=== PATIENT | male | born 1965 | race Caucasian/White ===

== ENCOUNTER 2017-10-04 17:39 | Emergency (ER) | payer OTHER ==
--- NOTE | 2017-10-04 17:51 | PDOC ---
History of Present Illness <Jacquelyn Santos - Last Filed: 10/04/17 21:13> - General History Source: Patient - History of Present Illness Initial Comments: 10/04/17 18:24 Patient is a 52 year old male with a PMH of pericarditis, NIDDM, Bipolar Disorder who presents with 3 month h/o chest pain. Pain is sharp, 10/10, constant, with radiation to his B/L UE and back. Patient denies any associated palpitations, lightheadedness, endorses dyspnea both @ rest and on exertion. Notes recent evaluation and treatment for percarditis @ [facility]. Has previously scheduled cardiology appointment for 10/06/17. Currently taking colchicine and ibuprofen for pericarditis. Notes h/o heroin abuse, but no IV use. Patient denies fevers/chills, abdominal pain, nausea/vomiting, dsyuria/hematuria , recent travel or sick contacts. As per EMR patient evaluated in [facility] for detox from Xanax in 2012. NKDA PMD: Cannot recall Cardiology: Dr. Diallo Peguero <Fabiola Fish - Last Filed: 10/05/17 07:20> - General Chief Complaint: Chest Pain Stated Complaint: CHEST PAIN Time Seen by Provider: 10/04/17 17:48 Past History <Jacquelyn Santos - Last Filed: 10/04/17 21:13> - Past Medical History Asthma: Yes Cardiac Disorders: No CVA: No COPD: No Diabetes: No GI Disorders: No Disorders: No HTN: Yes Hypercholesterolemia: Yes (FORGOT NAME OF MED) Kidney Stones: No Seizures: No - Surgical History Abdominal Surgery: No Appendectomy: No Cardiac Surgery: No Cholecystectomy: No Lung Surgery: No Neurologic Surgery: No Orthopedic Surgery: No - Reproductive History Testicular Surgery: No - Suicide/Smoking/Psychosocial Hx Smoking History: Current every day smoker Have you smoked in the past 12 months: Yes Number of Cigarettes Smoked Daily: 10 'Breaking Loose' booklet given: 01/04/13 Hx Alcohol Use: No Drug/Substance Use Hx: Yes Substance Use Type: Heroin, Tranquilizers Hx Substance Use Treatment: Yes (multiple times in detox and rehab) <Fabiola Fish - Last Filed: 10/05/17 07:20> - Past Medical History Allergies/Adverse Reactions: Allergies Allergy/AdvReac Type Severity Reaction Status Date / Time No Known Allergies Allergy Verified 01/09/13 14:55 Home Medications: Ambulatory Orders Aspirin [ASA -] 81 mg PO DAILY #30 tab.chew 01/28/13 Enalapril Maleate [Vasotec -] 5 mg PO DAILY #30 tablet 01/28/13 Hydrochlorothiazide [Hctz -] 12.5 mg PO DAILY #30 cap 01/28/13 Quetiapine Fumarate "Xr" [Seroquel XR] 300 mg PO HS@1999 #14 tablet 01/28/13 Salmeterol/Fluticasone [Advair 250Mcg/50Mcg -] 1 inh PO BID #1 inh 01/28/13 Sertraline HCl [Zoloft -] 50 mg PO DAILY #30 tablet 01/28/13 Ibuprofen [Motrin -] 800 mg PO BID #50 tablet 10/04/17 Review of Systems - Review of Systems Constitutional: No: Chills, Fever HEENTM: No: Recent change in vision Respiratory: Yes: Shortness of Breath. No: Cough Cardiac (ROS): Yes: Chest Pain. No: Lightheadedness, Palpitations, Syncope ABD/GI: No: Constipated, Diarrhea, Nausea, Vomiting : No: Burning, Dysuria <Fabiola Fish - Last Filed: 10/05/17 07:20> *Physical Exam - Vital Signs Last Vital Signs Temp Pulse Resp BP Pulse Ox 99 F 92 H 20 148/95 100 10/04/17 17:44 10/04/17 17:44 10/04/17 17:44 10/04/17 17:44 10/04/17 18:04 <Jacquelyn Santos - Last Filed: 10/04/17 21:13> - Physical Exam General Appearance: Yes: Nourished, Appropriately Dressed HEENT: positive: EOMI, PORFIRIO Neck: positive: Trachea midline, Supple Respiratory/Chest: positive: Lungs Clear Cardiovascular: positive: S1, S2. negative: Edema, JVD Vascular Pulses: Dorsalis-Pedis (R): 2+, Doralis-Pedis (L): 2+ Gastrointestinal/Abdominal: positive: Normal Bowel Sounds, Soft. 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 NML intact, Fully Oriented, Alert <Fabiola Fish - Last Filed: 10/05/17 07:20> ED Treatment Course - LABORATORY CBC & Chemistry Diagram: 10/04/17 18:04 10/04/17 18:04 - ADDITIONAL ORDERS Additional order review: Laboratory Results 10/04/17 10/04/17 18:04 18:04 PT with INR 15.60 H INR 1.38 H PTT (Actin FS) 29.8 Sodium 133 L Potassium 4.8 D Chloride 96 L Carbon Dioxide 34 H D Anion Gap 3 L BUN 8 Creatinine 0.5 L Creat Clearance w eGFR > 60 Random Glucose 299 H D Calcium 8.3 L Total Bilirubin 0.3 D AST 13 L D ALT 29 Alkaline Phosphatase 116 Creatine Kinase 39 Troponin I < 0.02 B-Natriuretic Peptide 693.76 H Total Protein 7.3 Albumin 2.9 L 10/04/17 18:04 RBC 4.18 MCV 82.6 MCHC 34.4 RDW 13.4 MPV 8.1 D Neutrophils % 81.1 Lymphocytes % 9.8 Monocytes % 7.3 Eosinophils % 1.1 Basophils % 0.7 - Medications Given in the ED: ED Medications Discontinued Medications Generic Name Dose Route Start Last Admin Trade Name Josey PRN Reason Stop Dose Admin Acetaminophen 1,000 mg 10/04/17 18:42 10/04/17 18:53 Ofirmev Injection - IVPB 10/04/17 18:43 1,000 mg ONCE ONE Administration Ketorolac Tromethamine 30 mg 10/04/17 19:33 10/04/17 20:00 Toradol Injection - IVPUSH 10/04/17 19:34 30 mg ONCE ONE Administration <SantosJacquelyn solis - Last Filed: 10/04/17 21:13> - LABORATORY CBC & Chemistry Diagram: 10/04/17 18:04 10/04/17 18:04 <Fabiola Fish - Last Filed: 10/05/17 07:20> Medical Decision Making - Medical Decision Making 10/04/17 18:31 52 year old male presents with chest pain that radiates to his back and B/L UE. Pain presents > 3 months. VS unremarkable. Low clinical suspicion for aortic dissection. Will obtain CBC, CMP, Troponin x1, CXR. Tylenol for pain. Reasess. 10/04/17 18:43 ECG shows NSR HR 96, no deviations, no diffuse DELISA elevations (no active pericarditis) no STD/TWI (non-acute ischemia). Patient to be signed out to Dr. Burns (Resident) and Dr. Blood (Attending ) - planned disposition home pending Troponin and CXR. <Fabiola Fish - Last Filed: 10/05/17 07:20> *DC/Admit/Observation/Transfer <Jacquelyn Santos - Last Filed: 10/04/17 21:13> <Fabiola Fish - Last Filed: 10/05/17 07:20> Diagnosis at time of Disposition: Pericarditis Qualifiers: Pericarditis type: unspecified type Chronicity: chronic Chronic pericarditis complication: unspecified complication status Qualified Code(s): I31.9 - Disease of pericardium, unspecified Chest pain Qualifiers: Chest pain type: unspecified Qualified Code(s): R07.9 - Chest pain, unspecified - Discharge Dispostion Disposition: HOME Condition at time of disposition: Good - Prescriptions Prescriptions: Ibuprofen [Motrin -] 800 mg PO BID #50 tablet - Referrals Referrals: ON STAFF,NOT [Primary Care Provider] - - Patient Instructions Printed Discharge Instructions: DI for Chest Pain Additional Instructions: You were seen in the ER for chest pain. We did lab work on your blood and urine , an electrocardiogram, and a chest x-ray, and we did not find any concerning abnormalities. Your symptoms improved with the medications we gave you in the ER. After our assessment, we do not believe you are having a medical emergency at this time, and we believe you are safe to go home. Take over the counter pain medications for your pain, as instructed on the medication label. Please follow up with your home care specialist on 10/06/17 (in two days; Monday), and your regular PCP doctor in 1-3 days. Call their clinic as soon as possible, tell them you were seen in the ER, and tell them you need an appointment. Take your prescribed Motrin for pain. If you have any new or worsening symptoms, especially worsening chest pain, jaw pain, shoulder/arm pain, shortness of breath, sweats, nausea, loss of consciousness, palpitations, or other symptoms, please come back to the ER at any time (24 hours a day). If you are having severe or life threatening symptoms, or symptoms that make it unsafe to drive or have someone drive you, please call 911.
[2017-10-04 18:17] LABS: BASO % 0.7 % (0-2.0); EOS % 1.1 % (0-4.5); HEMATOCRIT 34.5 % (35.4-49); HEMOGLOBIN 11.9 GM/dL (11.7-16.9); LYMPH % 9.8 % (8-40); MCH 28.4 pg (25.7-33.7); MCHC 34.4 g/dl (32.0-35.9); MEAN CELL VOLUME 82.6 fl (80-96); MEAN PLT VOLUME 8.1 fl (7.5-11.1); MONO % 7.3 % (3.8-10.2); NEUT % 81.1 % (42.8-82.8); PLATELET COUNT 399 K/MM3 (134-434); RBC 4.18 M/mm3 (4.00-5.60); RDW 13.4 % (11.9-15.9); WHITE BLOOD COUNT 10.7 K/mm3 (4.0-10.0)
[2017-10-04 18:22] VITALS: BP 148/95; PULSE 92; TEMP 99; BMI 34.0
[2017-10-04 18:38] LABS: INR 1.38 (0.82-1.09); PROTHROMBIN TIME (PATIENT) 15.6 SEC (9.7-13.0)
[2017-10-04 18:40] LABS: ACTIVATED PTT 29.8 SECONDS (26.9-34.4)
[2017-10-04] MEDS ORDERED: ACETAMINOPHEN 1000 MG/100 ML VIAL (NON FORMULARY) IVPB ONE (18:42)
[2017-10-04] MEDS ORDERED: ACETAMINOPHEN INJECTION 100 ML IVPB ONE (18:42)
--- NOTE | 2017-10-04 18:45 | PDOC ---
Attending Attestation - Resident Resident Name: Fabiola Fish - ED Attending Attestation I have performed the following: I have examined & evaluated the patient, The case was reviewed & discussed with the resident, I agree w/resident's findings & plan, Exceptions are as noted - HPI HPI: 10/06/17 10:35 Mr Castillo is a 52 year old male with a PMH of pericarditis, NIDDM, Bipolar Disorder who presents with 3 month h/o chest pain. Pain is sharp, 10/10, constant, with radiation to his B/L UE and back. S/p recent evaluation and treatment for percarditis @ [facility] (has follow up on 10/06) No fevers/chills, abdominal pain, nausea/vomiting, dsyuria/hematuria, recent travel or sick contacts. - Physicial Exam PE: 10/06/17 10:39 General Appearance: Yes: Nourished, Appropriately Dressed HEENT: positive: EOMI, PORFIRIO Respiratory/Chest: Lungs Clear, no wheezing Cardiovascular: positive: S1, S2. negative: Edema, JVD Vascular Pulses: Dorsalis-Pedis (R): 2+, Doralis-Pedis (L): 2+ Gastrointestinal/Abdominal: positive: Normal Bowel Sounds, Soft. 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
[2017-10-04 18:50] LABS: ALBUMIN 2.9 g/dl (3.4-5.0); ANION GAP 3 (8-16); BILIRUBIN,TOTAL 0.3 mg/dL (0.2-1.0); BLOOD UREA NITROGEN 8 mg/dL (7-18); CALCIUM 8.3 mg/dL (8.5-10.1); CHLORIDE 96 mmol/L (98-107); CO2 34 mmol/L (21-32); CREATININE 0.5 mg/dL (0.7-1.3); GLUCOSE,RANDOM 299 mg/dL (74-106); POTASSIUM 4.8 mmol/L (3.5-5.1); SGOT/AST 13 U/L (15-37); SGPT/ALT 29 U/L (12-78); SODIUM 133 mmol/L (136-145)
[2017-10-04 18:54] LABS: ALK PHOS 116 U/L (45-117); N-TERMINAL BNP 693.76 pg/ml (5-125); TOT PROT 7.3 g/dl (6.4-8.2)
--- NOTE | 2017-10-04 19:09 | PDOC ---
*Physical Exam - Vital Signs Last Vital Signs Temp Pulse Resp BP Pulse Ox 99 F 92 H 20 148/95 100 10/04/17 17:44 10/04/17 17:44 10/04/17 17:44 10/04/17 17:44 10/04/17 18:04 10/04/17 19:07 Care endorsed to me by Dr. Fish. 52 YOM Recently dx and tx pericarditis, h/o IVDA on methadone, comes in with 3 month of chest pain, nothing different today , bilateral BP roughtly equal, EKG without ischemic changes, has appointment with cards on 10/06/17, awaiting results of troponin then can likely dispo home with close f/u. Heart Score/ECG Review - History History: Slightly suspicious - Electrocardiogram EKG: Normal - Age Age: 45-65 - Risk Factors Risk Factors Heart Score: Yes Hx Hypertension Based on the list above the patient has:: 1-2 risk factors - Troponin Troponin: </= normal limit - Score Heart Score - Total: 2 ED Treatment Course - LABORATORY CBC & Chemistry Diagram: 10/04/17 18:04 10/04/17 18:04 - ADDITIONAL ORDERS Additional order review: Laboratory Results 10/04/17 18:04 PT with INR 15.60 H INR 1.38 H PTT (Actin FS) 29.8 10/04/17 18:04 RBC 4.18 MCV 82.6 MCHC 34.4 RDW 13.4 MPV 8.1 D Neutrophils % 81.1 Lymphocytes % 9.8 Monocytes % 7.3 Eosinophils % 1.1 Basophils % 0.7 - Medications Given in the ED: ED Medications Discontinued Medications Generic Name Dose Route Start Last Admin Trade Name Freq PRN Reason Stop Dose Admin Acetaminophen 1,000 mg 10/04/17 18:42 10/04/17 18:53 Ofirmev Injection - IVPB 10/04/17 18:43 1,000 mg ONCE ONE Administration Medical Decision Making - Medical Decision Making 10/04/17 19:58 Patient with residual pain now; toradol ordered. Laboratory Tests 10/04/17 10/04/17 10/04/17 18:04 18:04 18:04 WBC 10.7 H RBC 4.18 Hgb 11.9 D Hct 34.5 L D MCV 82.6 MCH 28.4 MCHC 34.4 RDW 13.4 Plt Count 399 D MPV 8.1 D Neutrophils % 81.1 Lymphocytes % 9.8 Monocytes % 7.3 Eosinophils % 1.1 Basophils % 0.7 PT with INR 15.60 H INR 1.38 H PTT (Actin FS) 29.8 Sodium 133 L Potassium 4.8 D Chloride 96 L Carbon Dioxide 34 H D Anion Gap 3 L BUN 8 Creatinine 0.5 L Creat Clearance w eGFR > 60 Random Glucose 299 H D Calcium 8.3 L Total Bilirubin 0.3 D AST 13 L D ALT 29 Alkaline Phosphatase 116 Creatine Kinase 39 Troponin I < 0.02 B-Natriuretic Peptide 693.76 H Total Protein 7.3 Albumin 2.9 L 10/04/17 20:02 Cardiac enzymes are negative. 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 EKG is without ischemic changes. On last reassessment VS are stable, patients pain is much improved, and exam is benign. The patients HEART score indicates they are low risk and do not require admission currently. The patient is appropriate for discharge with close outpatient follow up. They are comfortable with this plan and will follow up with their commercial artist as scheduled 10/06/17. They will follow up with their regular doctor in the next 1-3 days. Return precautions are discussed and they will come back to the ER if necessary. *DC/Admit/Observation/Transfer Diagnosis at time of Disposition: Pericarditis Qualifiers: Pericarditis type: unspecified type Chronicity: chronic Chronic pericarditis complication: unspecified complication status Qualified Code(s): I31.9 - Disease of pericardium, unspecified Chest pain Qualifiers: Chest pain type: unspecified Qualified Code(s): R07.9 - Chest pain, unspecified - Discharge Dispostion Disposition: HOME Condition at time of disposition: Good Admit: No - Prescriptions Prescriptions: Ibuprofen [Motrin -] 800 mg PO BID #50 tablet - Referrals Referrals: ON STAFF,NOT [Primary Care Provider] - - Patient Instructions Printed Discharge Instructions: DI for Chest Pain Additional Instructions: You were seen in the ER for chest pain. We did lab work on your blood and urine , an electrocardiogram, and a chest x-ray, and we did not find any concerning abnormalities. Your symptoms improved with the medications we gave you in the ER. After our assessment, we do not believe you are having a medical emergency at this time, and we believe you are safe to go home. Take over the counter pain medications for your pain, as instructed on the medication label. Please follow up with your commercial artist on 10/06/17 (in two days; Monday), and your regular PCP doctor in 1-3 days. Call their clinic as soon as possible, tell them you were seen in the ER, and tell them you need an appointment. Take your prescribed Motrin for pain. If you have any new or worsening symptoms, especially worsening chest pain, jaw pain, shoulder/arm pain, shortness of breath, sweats, nausea, loss of consciousness, palpitations, or other symptoms, please come back to the ER at any time (24 hours a day). If you are having severe or life threatening symptoms, or symptoms that make it unsafe to drive or have someone drive you, please call 911. - Post Discharge Activity
[2017-10-04] MEDS ORDERED: KETOROLAC TROMETHAMINE 30 MG/1 ML VIAL IVPUSH ONE (19:33)
[2017-10-04] MEDS ORDERED: KETOROLAC TROMETHAMINE 30 MG/1 ML VIAL ONE (19:48)
--- NOTE | 2017-10-05 11:28 | EKG ---
Test Reason : Blood Pressure : / mmHG Vent. Rate : 096 BPM Atrial Rate : 096 BPM P-R Int : 148 ms QRS Dur : 100 ms QT Int : 356 ms P-R-T Axes : 053 034 070 degrees QTc Int : 449 ms NORMAL SINUS RHYTHM NONSPECIFIC T WAVE ABNORMALITY ABNORMAL ECG NO PREVIOUS ECGS AVAILABLE Confirmed by FRANKLIN EASON, KHRIS ([id number]) on 10/05/2017 11:28:30 AM Referred By: Confirmed By:KHRIS REID MD
== END 2017-10-04 18:55 | disposition home or self-care (01) ==
LOC: JER 17:39
PROC: 3E033NZ Introduction of Analgesics, Hypnotics, Sedatives into Peripheral Vein, Percutaneous Approach (ICD-10-PCS; principal; 2017-10-04)
PROC: 3E0333Z Introduction of Anti-inflammatory into Peripheral Vein, Percutaneous Approach (ICD-10-PCS; 2017-10-04)
DX: I31.9 Disease of pericardium, unspecified (principal); R07.9 Chest pain, unspecified; I10 Essential (primary) hypertension; E78.00 Pure hypercholesterolemia, unspecified; J45.909 Unspecified asthma, uncomplicated; F17.210 Nicotine dependence, cigarettes, uncomplicated
CPT/HCPCS: 36415; 80053; 82550; 83880; 84484; 85025; 85610; 85730; 93005; 93010; 96374; 96375; 99285-25; J0131

== ENCOUNTER 2021-03-08 14:25 | Emergency (ER) | payer OTHER ==
[2021-03-08 14:52] VITALS: BP 108/68; PULSE 64; TEMP 98; BMI 32.5
[2021-03-08] MEDS ORDERED: PIPERACILLIN/TAZOB 4.5 GM 4.5 GM in DEXTROSE 5%-WATER 100 ML IVPB ONE (15:47)
[2021-03-08] MEDS ORDERED: VANCOMYCIN 2,000 MG in DEXTROSE 5%-WATER - 500 ML IVPB ONE (15:48)
[2021-03-08] MEDS ORDERED: ACETAMINOPHEN 1000 MG/100 ML VIAL (NON FORMULARY) IVPB ONE (16:23)
[2021-03-08] MEDS ORDERED: PIPERACILLIN/TAZOB 4.5 GM 4.5 GM/100 ML BAG IVPB ONE (16:34)
[2021-03-08] MEDS ORDERED: ACETAMINOPHEN INJECTION 100 ML IVPB ONE (16:34)
[2021-03-08 16:47] LABS: BASO % 0.3 % (0-2.0); EOS % 3.8 % (0-4.5); HEMATOCRIT 40.2 % (35.4-49); HEMOGLOBIN 13.8 GM/dL (11.7-16.9); LYMPH % 21.8 % (8-40); MCH 29.1 pg (25.7-33.7); MCHC 34.4 g/dl (32.0-35.9); MEAN CELL VOLUME 84.5 fl (80-96); MEAN PLT VOLUME 7.7 fl (7.5-11.1); MONO % 6.3 % (3.8-10.2); NEUT % 67.8 % (42.8-82.8); PLATELET COUNT 267 10^3/uL (134-434); RBC 4.76 M/mm3 (4.00-5.60); RDW 13.4 % (11.9-15.9); WHITE BLOOD COUNT 8.6 K/mm3 (4.0-10.0)
[2021-03-08] MEDS ORDERED: VANCOMYCIN 1 GRAM (PRE-DOCKED) 1,000 MG/250 ML BAG IVPB ONE (17:01)
[2021-03-08 17:09] LABS: CALCIUM 9.2 mg/dL (8.5-10.1)
[2021-03-08 17:10] LABS: ALBUMIN 3.6 g/dl (3.4-5.0); BLOOD UREA NITROGEN 14.4 mg/dL (7-18)
[2021-03-08 17:13] LABS: CREATININE 0.6 mg/dL (0.55-1.3)
[2021-03-08 17:14] LABS: BILIRUBIN,TOTAL 0.4 mg/dL (0.2-1)
[2021-03-08 17:15] LABS: TOT PROT 7.4 g/dl (6.4-8.2)
== END 2021-03-08 18:42 | disposition left against medical advice (07) ==
LOC: JER 14:25 → UNDOADMIN 16:59 → JERBED 16:59 → UNDODISIN 18:42
PROC: 3E0333Z Introduction of Anti-inflammatory into Peripheral Vein, Percutaneous Approach (ICD-10-PCS; principal; 2021-03-08)
PROC: 3E03329 Introduction of Other Anti-infective into Peripheral Vein, Percutaneous Approach (ICD-10-PCS; 2021-03-08)
PROC: 3E03329 Introduction of Other Anti-infective into Peripheral Vein, Percutaneous Approach (ICD-10-PCS; 2021-03-08)
DX: L97.529 Non-pressure chronic ulcer of other part of left foot with unspecified severity (principal)
CPT/HCPCS: 36415; 73630-TC-LT; 80053; 85025; 87040; 99284-25; J0131

== ENCOUNTER 2023-10-17 05:59 | Emergency (ER) | payer OTHER ==
[2023-10-17 06:06] VITALS: BP 135/82; PULSE 91; RESP 20; TEMP 98.6; BMI 19.2
== END 2023-10-17 07:47 | disposition left against medical advice (07) ==
LOC: JER 05:59
DX: Z53.21 Procedure and treatment not carried out due to patient leaving prior to being seen by health care provider (principal)
CPT/HCPCS: 99281-25

== ENCOUNTER 2023-10-17 17:56 | Inpatient (IN) | payer OTHER ==
[2023-10-17] MEDS ORDERED: PIPERACILLIN/TAZOB 3.375 GM 3.375 GM/50 ML BAG IVPB ONE (19:26)
[2023-10-17] MEDS ORDERED: ACETAMINOPHEN INJECTION 100 ML IVPB ONE (19:26)
[2023-10-17 20:07] LABS: BASO % 0.4 % (0-2.0); EOS % 1.9 % (0-4.5); HEMATOCRIT 40.1 % (35.4-49); HEMOGLOBIN 14.2 GM/dL (11.7-16.9); LYMPH % 18.8 % (8-40); MCHC 35.4 g/dl (32.0-35.9); MEAN CELL VOLUME 84.7 fl (80-96); MEAN PLT VOLUME 8.7 fl (7.5-11.1); MONO % 6.5 % (3.8-10.2); NEUT % 72.4 % (42.8-82.8); PLATELET COUNT 267 10^3/uL (134-434); RBC 4.74 M/mm3 (4.00-5.60); RDW 12.9 % (11.9-15.9); WHITE BLOOD COUNT 8.8 K/mm3 (4.0-10.0)
[2023-10-17 20:13] LABS: INR 1.02 (0.83-1.09); PROTHROMBIN TIME (PATIENT) 11.5 SEC (9.7-13.0)
[2023-10-17 20:16] LABS: ACTIVATED PTT 30.9 SECONDS (25.2-36.5)
[2023-10-17 20:24] LABS: CHLORIDE 97 mmol/L (98-107); SODIUM 130 mmol/L (136-145)
[2023-10-17 20:26] LABS: CALCIUM 9.1 mg/dL (8.5-10.1)
[2023-10-17 20:27] LABS: ALBUMIN 3.4 g/dl (3.4-5.0); ANION GAP 6 mmol/L (4-13); BLOOD UREA NITROGEN 10.9 mg/dL (7-18); CO2 28 mmol/L (21-32); MAGNESIUM 1.8 mg/dL (1.8-2.4)
[2023-10-17 20:30] LABS: CREATININE 0.7 mg/dL (0.55-1.3); SGOT/AST 14 U/L (15-37); SGPT/ALT 18 U/L (13-61)
[2023-10-17 20:31] LABS: TOT PROT 6.8 g/dl (6.4-8.2)
[2023-10-17 20:33] LABS: ALK PHOS 110 U/L (45-117)
[2023-10-17 20:40] LABS: BILIRUBIN,TOTAL 0.5 mg/dL (0.2-1)
[2023-10-17] MEDS ORDERED: ACETAMINOPHEN 500 MG TABLET (FP) ONE (20:54)
[2023-10-17] MEDS: ACETAMINOPHEN 500 MG TABLET (FP) PO ONE (20:58)
[2023-10-17 21:04] LABS: ERYTHROCYTE SEDIMENTATION RATE 13 mm/hr (0-20)
[2023-10-17 21:09] LABS: GLUCOSE,RANDOM 511 mg/dL (74-106)
[2023-10-17] MEDS: PIPERACILLIN/TAZOB 3.375 GM 3.375 GM in DEXTROSE 5%-WATER - 50 ML IVPB ONE (22:00)
[2023-10-17] MEDS: INSULIN (NOVOLOG) ASPART 100 UNITS/ML 10ML VIAL SQ ONE (22:08)
[2023-10-17] MEDS ORDERED: VANCOMYCIN 1 GRAM (PRE-DOCKED) 1,000 MG/250 ML BAG IVPB ONE (22:20)
[2023-10-17] MEDS: ACETAMINOPHEN 1000 MG/100 ML BAG IVPB ONE (22:30)
[2023-10-17] MEDS: SODIUM CHLORIDE 0.9% 500 ML INFUS.BAG IV ONE (23:23)
[2023-10-17] MEDS: VANCOMYCIN 1,000 MG in DEXTROSE 5%-WATER - 250 ML IVPB ONE (23:23)
[2023-10-18 02:25] VITALS: BMI 24.8
[2023-10-18] MEDS: PIPERACILLIN/TAZOB 3.375 GM 3.375 GM in DEXTROSE 5%-WATER - 50 ML IVPB SCH ×2 (02:50→18:05)
[2023-10-18] MEDS: ACETAMINOPHEN 500 MG TABLET (FP) PO ONE (02:58)
[2023-10-18] MEDS ORDERED: PIPERACILLIN/TAZOB 3.375 GM 3.375 GM in DEXTROSE 5%-WATER - 50 ML IVPB SCH (03:00)
[2023-10-18] MEDS: INSULIN ASPART SLIDING SCALE (NOVOLOG) 1 VIAL SQ SCH (06:19)
[2023-10-18 08:06] LABS: BASO % 0.3 % (0-2.0); EOS % 2.3 % (0-4.5); HEMATOCRIT 41.7 % (35.4-49); HEMOGLOBIN 14.6 GM/dL (11.7-16.9); LYMPH % 17.4 % (8-40); MCH 29.6 pg (25.7-33.7); MEAN CELL VOLUME 84.5 fl (80-96); MEAN PLT VOLUME 8.4 fl (7.5-11.1); MONO % 6.1 % (3.8-10.2); NEUT % 73.9 % (42.8-82.8); PLATELET COUNT 286 10^3/uL (134-434); RBC 4.94 M/mm3 (4.00-5.60); WHITE BLOOD COUNT 7.8 K/mm3 (4.0-10.0)
[2023-10-18 08:22] LABS: POTASSIUM 4.1 mmol/L (3.5-5.1)
[2023-10-18 08:35] LABS: CALCIUM 8.7 mg/dL (8.5-10.1)
[2023-10-18 08:36] LABS: ALBUMIN 3.4 g/dl (3.4-5.0); BLOOD UREA NITROGEN 11.9 mg/dL (7-18)
[2023-10-18 08:37] LABS: CREATININE 0.6 mg/dL (0.55-1.3); PHOSPHOROUS 2.6 mg/dL (2.5-4.9)
[2023-10-18 08:39] LABS: BILIRUBIN,TOTAL 0.6 mg/dL (0.2-1)
[2023-10-18] MEDS ORDERED: VANCOMYCIN 1,000 MG in DEXTROSE 5%-WATER - 250 ML IVPB SCH (10:00)
[2023-10-18] MEDS: ENOXAPARIN NA (PORCINE) 40 MG/0.4 ML DISP.SYRIN SQ SCH (11:08)
[2023-10-18] MEDS: COLLAGENASE CLOSTRIDIUM HIST. 30 GRAMS TUBE TP SCH (11:08)
[2023-10-18] MEDS: VANCOMYCIN/WATER FOR INJ (PEG) 1,000 MG/200 ML BAG IVPB SCH (11:34)
[2023-10-18] MEDS: NICOTINE 21 MG/24 HOURS TOPICAL PATCH TD SCH (12:18)
[2023-10-18] MEDS: ALPRAZolam 1 MG TABLET PO ONE (12:18)
[2023-10-18] MEDS: INSULIN (NOVOLOG) ASPART 100 UNITS/ML 10ML VIAL SQ ONE (14:47)
[2023-10-18] MEDS: SODIUM CHLORIDE 1,000 ML IV SCH (18:05)
[2023-10-18] MEDS ORDERED: INSULIN (LEVEMIR) 100 UNITS/ML UNITS SQ SCH (22:00)
[2023-10-18] MEDS: ALPRAZolam 1 MG TABLET PO PRN (22:39)
[2023-10-18] MEDS: INSULIN (LEVEMIR) 100 UNITS/ML UNITS SQ SCH (22:52)
[2023-10-19] MEDS: INSULIN ASPART SLIDING SCALE (NOVOLOG) 1 VIAL SQ SCH (07:00)
[2023-10-19] MEDS: INSULIN (LEVEMIR) 100 UNITS/ML UNITS SQ SCH (07:00)
[2023-10-19] MEDS: DULoxetine HCL 20 MG CAPSULE.DR PO SCH (09:18)
[2023-10-19] MEDS: VANCOMYCIN PREMIX 1.5 GM 1,500 MG/300 ML BAG IVPB SCH (13:23)
[2023-10-19] MEDS: ACETAMINOPHEN 500 MG TABLET (FP) PO ONE (21:40)
[2023-10-19] MEDS: MELATONIN 5 MG TABLETS PO ONE (21:40)
[2023-10-20] MEDS: INSULIN (LEVEMIR) 100 UNITS/ML UNITS SQ SCH (06:14)
[2023-10-20] MEDS: RAMIPRIL 2.5 MG CAPSULE PO SCH (10:07)
[2023-10-20 11:14] VITALS: RESP 18
[2023-10-20] MEDS: INSULIN (NOVOLOG) ASPART 100 UNITS/ML 10ML VIAL SQ ONE (22:03)
[2023-10-21 10:18] LABS: CHOLESTEROL 177 mg/dL (50-200)
[2023-10-21 10:19] LABS: LDL CHOLESTEROL (ONLY SJRH) 80 mg/dL (5-100)
[2023-10-21 10:21] LABS: HDL CHOLESTEROL 78 mg/dL (40-60)
[2023-10-21] MEDS: VANCOMYCIN PREMIX 1.5 GM 1,500 MG/300 ML BAG IVPB SCH (15:54)
[2023-10-21] MEDS: ACETAMINOPHEN 325 MG TABLET (FP) PO ONE (23:19)
[2023-10-22 09:01] LABS: BASO % 0.5 % (0-2.0); EOS % 2.6 % (0-4.5); HEMATOCRIT 41.3 % (35.4-49); HEMOGLOBIN 14.6 GM/dL (11.7-16.9); LYMPH % 17.8 % (8-40); MCH 30.1 pg (25.7-33.7); MCHC 35.3 g/dl (32.0-35.9); MEAN CELL VOLUME 85.4 fl (80-96); MEAN PLT VOLUME 8.7 fl (7.5-11.1); MONO % 7.9 % (3.8-10.2); NEUT % 71.2 % (42.8-82.8); PLATELET COUNT 246 10^3/uL (134-434); RBC 4.83 M/mm3 (4.00-5.60); RDW 12.8 % (11.9-15.9)
[2023-10-22 09:27] LABS: POTASSIUM 4.6 mmol/L (3.5-5.1)
[2023-10-22 09:32] LABS: CALCIUM 9.1 mg/dL (8.5-10.1)
[2023-10-22 09:33] LABS: BLOOD UREA NITROGEN 15.1 mg/dL (7-18)
[2023-10-22 09:36] LABS: CREATININE 0.7 mg/dL (0.55-1.3)
[2023-10-22] MEDS: ACETAMINOPHEN 325 MG TABLET (FP) PO PRN (14:54)
[2023-10-23 08:26] LABS: HEMATOCRIT 40.2 % (35.4-49); MCH 29.5 pg (25.7-33.7); MCHC 34.9 g/dl (32.0-35.9); MEAN CELL VOLUME 84.4 fl (80-96); MEAN PLT VOLUME 8.6 fl (7.5-11.1); PLATELET COUNT 267 10^3/uL (134-434); RBC 4.76 M/mm3 (4.00-5.60); WHITE BLOOD COUNT 7.3 K/mm3 (4.0-10.0)
[2023-10-23 08:51] LABS: POTASSIUM 4.4 mmol/L (3.5-5.1)
[2023-10-23 08:53] LABS: CALCIUM 9.4 mg/dL (8.5-10.1)
[2023-10-23 08:54] LABS: BLOOD UREA NITROGEN 12.2 mg/dL (7-18)
[2023-10-23 08:57] LABS: CREATININE 0.6 mg/dL (0.55-1.3)
[2023-10-23 09:41] LABS: ANISOCYTOSIS 0; MACROCYTOSIS 0
[2023-10-23 09:56] VITALS: BP 148/77; PULSE 67; TEMP 98.4
== END 2023-10-23 13:45 | disposition home or self-care (01) | DRG 344 ==
LOC: JER 17:56 → JERBED 21:37 → J6S 10-18 01:28
PROVIDERS: ADMIT Student in an Organized Health Care Education/Training Program; ATTEND Family Medicine
DX: E11.69 Type 2 diabetes mellitus with other specified complication (principal); M86.9 Osteomyelitis, unspecified; M86.8X7 Other osteomyelitis, ankle and foot; E11.40 Type 2 diabetes mellitus with diabetic neuropathy, unspecified; F11.20 Opioid dependence, uncomplicated; E11.65 Type 2 diabetes mellitus with hyperglycemia; E11.621 Type 2 diabetes mellitus with foot ulcer; F17.210 Nicotine dependence, cigarettes, uncomplicated; I10 Essential (primary) hypertension; L97.509 Non-pressure chronic ulcer of other part of unspecified foot with unspecified severity
CPT/HCPCS: 36415; 73590-TC-RT-FY; 73630-TC-RT-FY; 73718-TC-RT; 80048; 80053; 80061; 82962; 83036; 83735; 84100; 85025; 85610; 85651; 85730; 86140; 87040; 87070; 87077; 87186; 87205; 93005; 93010; 93926-TC; 99285-25; G0480

== ENCOUNTER 2024-03-23 22:03 | Inpatient (IN) | payer OTHER ==
[2024-03-23 22:30] VITALS: BMI 19.2
[2024-03-23] MEDS ORDERED: ACETAMINOPHEN INJECTION 100 ML ONE (23:00)
[2024-03-23] MEDS: ACETAMINOPHEN 1000 MG/100 ML BAG IVPB ONE (23:11)
[2024-03-23 23:18] LABS: BASO % 0.4 % (0-2.0); HEMATOCRIT 38.3 % (35.4-49); HEMOGLOBIN 13.1 GM/dL (11.7-16.9); MCH 29.5 pg (25.7-33.7); MCHC 34.2 g/dl (32.0-35.9); MEAN CELL VOLUME 86.4 fl (80-96); MEAN PLT VOLUME 7.7 fl (7.5-11.1); MONO % 6.4 % (3.8-10.2); NEUT % 72.2 % (42.8-82.8); PLATELET COUNT 292 10^3/uL (134-434); RBC 4.44 M/mm3 (4.00-5.60); RDW 12.9 % (11.9-15.9); WHITE BLOOD COUNT 8.3 K/mm3 (4.0-10.0)
[2024-03-23] MEDS ORDERED: VANCOMYCIN 1 GRAM (PRE-DOCKED) 1,000 MG/250 ML BAG IVPB ONE (23:21)
[2024-03-23] MEDS ORDERED: PIPERACILLIN/TAZOB 4.5 GM 4.5 GM/100 ML BAG IVPB ONE (23:21)
[2024-03-23 23:42] LABS: POTASSIUM 3.8 mmol/L (3.5-5.1)
[2024-03-23 23:44] LABS: ALBUMIN 3.5 g/dl (3.4-5.0); CALCIUM 9.6 mg/dL (8.5-10.1)
[2024-03-23 23:45] LABS: BLOOD UREA NITROGEN 14.6 mg/dL (7-18)
[2024-03-23 23:49] LABS: TOT PROT 7.1 g/dl (6.4-8.2)
[2024-03-23] MEDS: PIPERACILLIN/TAZOB 4.5 GM 4.5 GM in DEXTROSE 5%-WATER 100 ML IVPB ONE (23:49)
[2024-03-24] MEDS: VANCOMYCIN 1,000 MG in DEXTROSE 5%-WATER - 250 ML IVPB ONE (00:28)
[2024-03-24 01:26] LABS: BILIRUBIN,TOTAL 0.3 mg/dL (0.2-1)
[2024-03-24] MEDS ORDERED: ACETAMINOPHEN INJECTION 100 ML ONE (05:04)
[2024-03-24] MEDS: ACETAMINOPHEN 1000 MG/100 ML BAG IVPB ONE (05:16)
[2024-03-24 07:49] LABS: BASO % 0.3 % (0-2.0); EOS % 4.2 % (0-4.5); HEMATOCRIT 36.9 % (35.4-49); LYMPH % 28.8 % (8-40); MCH 30.1 pg (25.7-33.7); MCHC 35.1 g/dl (32.0-35.9); MEAN CELL VOLUME 85.6 fl (80-96); MEAN PLT VOLUME 8.2 fl (7.5-11.1); MONO % 8.4 % (3.8-10.2); NEUT % 58.3 % (42.8-82.8); PLATELET COUNT 287 10^3/uL (134-434); RBC 4.31 M/mm3 (4.00-5.60); RDW 12.4 % (11.9-15.9); WHITE BLOOD COUNT 6.3 K/mm3 (4.0-10.0)
[2024-03-24 08:06] LABS: POTASSIUM 3.7 mmol/L (3.5-5.1)
[2024-03-24 08:11] LABS: CALCIUM 8.9 mg/dL (8.5-10.1)
[2024-03-24 08:12] LABS: BLOOD UREA NITROGEN 15.5 mg/dL (7-18); MAGNESIUM 1.6 mg/dL (1.8-2.4)
[2024-03-24 08:15] LABS: CREATININE 0.7 mg/dL (0.55-1.3)
[2024-03-24] MEDS ORDERED: PATIENT'S OWN MEDICATION (NON-FORMULARY) (Methadone 140 MG) PO SCH (10:00)
[2024-03-24] MEDS ORDERED: methaDONE HCL 10 MG TABLET PO SCH (10:00)
[2024-03-24] MEDS: DULoxetine HCL 20 MG CAPSULE.DR PO SCH (10:30)
[2024-03-24] MEDS ORDERED: methaDONE HCL 40 MG DISPERSABLE TABLET ONE (10:43)
[2024-03-24] MEDS ORDERED: RAMIPRIL 5 MG CAPSULE ONE (10:43)
[2024-03-24] MEDS: methaDONE HCL 40 MG DISPERSABLE TABLET PO ONE (10:50)
[2024-03-24] MEDS ORDERED: GABAPENTIN 100 MG CAPSULE ONE (10:51)
[2024-03-24] MEDS ORDERED: ASPIRIN 81 MG CHEWABLE TABLETS ONE (10:51)
[2024-03-24] MEDS ORDERED: PIPERACILLIN/TAZOB 3.375 GM 3.375 GM/50 ML BAG IVPB ONE (10:53)
[2024-03-24] MEDS ORDERED: VANCOMYCIN 1 GRAM (PRE-DOCKED) 1,000 MG/250 ML BAG IVPB ONE (10:54)
[2024-03-24] MEDS: RAMIPRIL 2.5 MG CAPSULE PO SCH (10:55)
[2024-03-24] MEDS: GABAPENTIN 100 MG CAPSULE PO SCH (11:00)
[2024-03-24] MEDS: ASPIRIN 81 MG CHEWABLE TABLETS PO SCH (11:00)
[2024-03-24] MEDS: PIPERACILLIN/TAZOB 3.375 GM 3.375 GM in DEXTROSE 5%-WATER - 50 ML IVPB SCH ×2 (11:45→19:31)
[2024-03-24] MEDS: VANCOMYCIN/WATER FOR INJ (PEG) 1,000 MG/200 ML BAG IVPB SCH (12:45)
[2024-03-24] MEDS ORDERED: INSULIN ASPART SLIDING SCALE (NOVOLOG) 1 VIAL SQ ONE ×3 (14:18→22:19)
[2024-03-24] MEDS: INSULIN ASPART SLIDING SCALE (NOVOLOG) 1 VIAL SQ SCH (14:41)
[2024-03-24] MEDS ORDERED: ENOXAPARIN NA (PORCINE) 40 MG/0.4 ML DISP.SYRIN SQ ONE (17:12)
[2024-03-24] MEDS ORDERED: CEFTRIAXONE 2 GM/100 ML BAG IVPB ONE (17:12)
[2024-03-24] MEDS: ENOXAPARIN NA (PORCINE) 40 MG/0.4 ML DISP.SYRIN SQ SCH (17:34)
[2024-03-24] MEDS: CEFTRIAXONE 2 GM in DEXTROSE 5%-WATER 100 ML IVPB SCH (17:34)
[2024-03-24] MEDS ORDERED: VANCOMYCIN 1,000 MG in DEXTROSE 5%-WATER - 250 ML IVPB SCH (22:00)
[2024-03-25] MEDS ORDERED: VANCOMYCIN 1 GRAM (PRE-DOCKED) 1,000 MG/250 ML BAG IVPB ONE (00:56)
[2024-03-25] MEDS: VANCOMYCIN/WATER FOR INJ (PEG) 1,000 MG/200 ML BAG IVPB SCH (01:05)
[2024-03-25] MEDS ORDERED: MELATONIN 5 MG TABLETS ONE (05:53)
[2024-03-25] MEDS ORDERED: hydrOXYzine PAMOATE 50 MG CAPSULE (FP) ONE (05:53)
[2024-03-25] MEDS: MELATONIN 5 MG TABLETS PO ONE (05:58)
[2024-03-25] MEDS: hydrOXYzine PAMOATE 50 MG CAPSULE (FP) PO ONE (05:58)
[2024-03-25 06:53] LABS: BASO % 0.7 % (0-2.0); EOS % 3.6 % (0-4.5); HEMATOCRIT 38.1 % (35.4-49); LYMPH % 23.8 % (8-40); MCH 29.5 pg (25.7-33.7); MCHC 34.2 g/dl (32.0-35.9); MEAN CELL VOLUME 86.1 fl (80-96); MEAN PLT VOLUME 8.6 fl (7.5-11.1); MONO % 7.1 % (3.8-10.2); NEUT % 64.8 % (42.8-82.8); PLATELET COUNT 264 10^3/uL (134-434); RBC 4.43 M/mm3 (4.00-5.60); RDW 12.4 % (11.9-15.9); WHITE BLOOD COUNT 6.2 K/mm3 (4.0-10.0)
[2024-03-25 07:03] LABS: POTASSIUM 4.5 mmol/L (3.5-5.1)
[2024-03-25 07:08] LABS: CALCIUM 9.1 mg/dL (8.5-10.1)
[2024-03-25 07:09] LABS: ALBUMIN 3.2 g/dl (3.4-5.0); BLOOD UREA NITROGEN 13.7 mg/dL (7-18)
[2024-03-25 07:11] LABS: CREATININE 0.7 mg/dL (0.55-1.3)
[2024-03-25 07:13] LABS: BILIRUBIN,TOTAL 0.2 mg/dL (0.2-1); TOT PROT 6.8 g/dl (6.4-8.2)
[2024-03-25] MEDS ORDERED: methaDONE HCL 40 MG DISPERSABLE TABLET ONE (09:15)
[2024-03-25] MEDS ORDERED: methaDONE HCL 10 MG TABLET ONE (09:15)
[2024-03-25] MEDS: methaDONE 80 MG, methaDONE 10 MG PO SCH (09:17)
[2024-03-25] MEDS ORDERED: ASPIRIN 81 MG CHEWABLE TABLETS ONE (09:21)
[2024-03-25] MEDS ORDERED: GABAPENTIN 100 MG CAPSULE ONE (09:22)
[2024-03-25] MEDS ORDERED: ENOXAPARIN NA (PORCINE) 40 MG/0.4 ML DISP.SYRIN SQ ONE (09:22)
[2024-03-25] MEDS ORDERED: CEFTRIAXONE 2 GM/100 ML BAG IVPB ONE (09:26)
[2024-03-26 10:17] LABS: BASO % 0.5 % (0-2.0); EOS % 3.4 % (0-4.5); LYMPH % 25.3 % (8-40); MCHC 33.5 g/dl (32.0-35.9); MEAN CELL VOLUME 86.6 fl (80-96); MONO % 6.7 % (3.8-10.2); NEUT % 64.1 % (42.8-82.8); PLATELET COUNT 287 10^3/uL (134-434); RDW 12.3 % (11.9-15.9)
[2024-03-26 10:37] LABS: POTASSIUM 4.5 mmol/L (3.5-5.1)
[2024-03-26 10:40] LABS: CALCIUM 9.2 mg/dL (8.5-10.1)
[2024-03-26 10:41] LABS: ALBUMIN 3.1 g/dl (3.4-5.0); BLOOD UREA NITROGEN 13.8 mg/dL (7-18)
[2024-03-26 10:44] LABS: CREATININE 0.6 mg/dL (0.55-1.3)
[2024-03-26 10:46] LABS: BILIRUBIN,TOTAL 0.3 mg/dL (0.2-1); TOT PROT 6.6 g/dl (6.4-8.2)
[2024-03-27 07:05] VITALS: RESP 18
[2024-03-27] MEDS: CEFTRIAXONE 2 GM-D5W BAG 2 GM/50 ML BAG IVPB SCH (10:14)
[2024-03-29 07:05] VITALS: TEMP 97.9
[2024-03-29 11:20] VITALS: BP 106/70; PULSE 72
== END 2024-03-29 11:47 | disposition left against medical advice (07) | DRG 344 ==
LOC: JER 22:03 → JERBED 03-24 01:17 → J5S 03-25 09:51
PROVIDERS: ADMIT Internal Medicine; ATTEND Internal Medicine
DX: E11.69 Type 2 diabetes mellitus with other specified complication (principal); M86.9 Osteomyelitis, unspecified; E11.42 Type 2 diabetes mellitus with diabetic polyneuropathy; E11.65 Type 2 diabetes mellitus with hyperglycemia; F11.20 Opioid dependence, uncomplicated; L03.116 Cellulitis of left lower limb; E11.621 Type 2 diabetes mellitus with foot ulcer; I10 Essential (primary) hypertension; L97.529 Non-pressure chronic ulcer of other part of left foot with unspecified severity
CPT/HCPCS: 36415; 73630-TC-LT; 73718-TC-LT; 80048; 80053; 82962; 83036; 83735; 85025; 86140; 87040; 93005; 93010; 93922; 93926-TC; 93971-TC; 99285-25; J0131

== ENCOUNTER 2024-04-06 10:16 | Inpatient (IN) | payer OTHER ==
[2024-04-06] MEDS ORDERED: PIPERACILLIN/TAZOB 4.5 GM 4.5 GM/100 ML BAG IVPB ONE (11:01)
[2024-04-06] MEDS ORDERED: ACETAMINOPHEN INJECTION 100 ML ONE (11:01)
[2024-04-06] MEDS ORDERED: VANCOMYCIN 1 GRAM (PRE-DOCKED) 1,000 MG/250 ML BAG IVPB ONE (11:02)
[2024-04-06] MEDS: ACETAMINOPHEN 1000 MG/100 ML BAG IVPB ONE (11:28)
[2024-04-06 11:36] LABS: BASO % 0.1 % (0-2.0); EOS % 0.9 % (0-4.5); HEMATOCRIT 32.9 % (35.4-49); HEMOGLOBIN 11.4 GM/dL (11.7-16.9); LYMPH % 6.4 % (8-40); MCH 29.4 pg (25.7-33.7); MCHC 34.7 g/dl (32.0-35.9); MEAN CELL VOLUME 84.8 fl (80-96); MEAN PLT VOLUME 7.9 fl (7.5-11.1); MONO % 6.2 % (3.8-10.2); NEUT % 86.4 % (42.8-82.8); PLATELET COUNT 242 10^3/uL (134-434); RBC 3.88 M/mm3 (4.00-5.60); RDW 12.5 % (11.9-15.9); WHITE BLOOD COUNT 10.8 K/mm3 (4.0-10.0)
[2024-04-06] MEDS: PIPERACILLIN/TAZOB 4.5 GM 4.5 GM in DEXTROSE 5%-WATER 100 ML IVPB ONE (11:38)
[2024-04-06 11:40] LABS: INR 1.26 (0.83-1.09); PROTHROMBIN TIME (PATIENT) 14.4 SEC (9.7-13.0)
[2024-04-06 11:43] LABS: ACTIVATED PTT 32.4 SECONDS (25.2-36.5)
[2024-04-06 12:02] LABS: POTASSIUM 3.9 mmol/L (3.5-5.1)
[2024-04-06 12:05] LABS: CALCIUM 9.1 mg/dL (8.5-10.1)
[2024-04-06 12:06] LABS: BLOOD UREA NITROGEN 10.2 mg/dL (7-18)
[2024-04-06 12:09] LABS: CREATININE 0.6 mg/dL (0.55-1.3)
[2024-04-06 12:10] LABS: BILIRUBIN,TOTAL 0.5 mg/dL (0.2-1); TOT PROT 6.7 g/dl (6.4-8.2)
[2024-04-06 12:14] LABS: ERYTHROCYTE SEDIMENTATION RATE 70 mm/hr (0-20)
[2024-04-06] MEDS: VANCOMYCIN 1,000 MG in DEXTROSE 5%-WATER - 250 ML IVPB ONE (12:38)
[2024-04-06] MEDS: CLINDAMYCIN 900 MG PREMIX IVPB 900 MG/50 ML BAG IVPB ONE (14:05)
[2024-04-06] MEDS ORDERED: MORPHINE SULFATE 2 MG/ML SYRINGE ONE (21:38)
[2024-04-06] MEDS: MORPHINE SULFATE 2 MG/ML SYRINGE IVPUSH ONE (21:48)
[2024-04-07 07:35] LABS: BASO % 0.7 % (0-2.0); EOS % 4.4 % (0-4.5); HEMOGLOBIN 10.9 GM/dL (11.7-16.9); LYMPH % 14.2 % (8-40); MCH 30.1 pg (25.7-33.7); MEAN CELL VOLUME 85.9 fl (80-96); MEAN PLT VOLUME 8.5 fl (7.5-11.1); MONO % 8.2 % (3.8-10.2); NEUT % 72.5 % (42.8-82.8); PLATELET COUNT 231 10^3/uL (134-434); RBC 3.61 M/mm3 (4.00-5.60); RDW 12.3 % (11.9-15.9); WHITE BLOOD COUNT 6.7 K/mm3 (4.0-10.0)
[2024-04-07 07:42] LABS: CHLORIDE 97 mmol/L (98-107); POTASSIUM 4.2 mmol/L (3.5-5.1); SODIUM 135 mmol/L (136-145)
[2024-04-07 07:43] LABS: CALCIUM 8.4 mg/dL (8.5-10.1)
[2024-04-07 07:44] LABS: ALBUMIN 2.5 g/dl (3.4-5.0); ANION GAP 7 mmol/L (4-13); BLOOD UREA NITROGEN 7.6 mg/dL (7-18); CO2 31 mmol/L (21-32)
[2024-04-07 07:47] LABS: CREATININE 0.8 mg/dL (0.55-1.3); SGOT/AST 13 U/L (15-37); SGPT/ALT 17 U/L (13-61)
[2024-04-07 07:48] LABS: GLUCOSE,RANDOM 458 mg/dL (74-106)
[2024-04-07 07:49] LABS: BILIRUBIN,TOTAL 0.3 mg/dL (0.2-1); TOT PROT 5.7 g/dl (6.4-8.2)
[2024-04-07 07:50] LABS: ALK PHOS 96 U/L (45-117)
[2024-04-07] MEDS: DULoxetine HCL 20 MG CAPSULE.DR PO SCH (10:14)
[2024-04-07] MEDS: ENOXAPARIN NA (PORCINE) 40 MG/0.4 ML DISP.SYRIN SQ SCH (10:14)
[2024-04-07] MEDS: ASPIRIN 81 MG CHEWABLE TABLETS PO SCH (10:14)
[2024-04-07] MEDS: GABAPENTIN 100 MG CAPSULE PO SCH (10:15)
[2024-04-07] MEDS: RAMIPRIL 2.5 MG CAPSULE PO SCH (10:15)
[2024-04-07] MEDS ORDERED: INSULIN ASPART SLIDING SCALE (NOVOLOG) 1 VIAL SQ ONE ×3 (11:13→22:03)
[2024-04-07] MEDS: INSULIN ASPART SLIDING SCALE (NOVOLOG) 1 VIAL SQ SCH (11:24)
[2024-04-07] MEDS: methaDONE HCL 40 MG DISPERSABLE TABLET PO SCH (13:00)
[2024-04-07] MEDS ORDERED: methaDONE HCL 40 MG DISPERSABLE TABLET ONE (13:18)
[2024-04-07] MEDS ORDERED: CEFTRIAXONE 2 GM/100 ML BAG IVPB ONE (15:05)
[2024-04-07] MEDS: CEFTRIAXONE 2 GM/50 ML BAG IVPB SCH (15:11)
[2024-04-07] MEDS: VANCOMYCIN/WATER 1250 MG 1,250 MG/250 ML BAG IVPB SCH (15:15)
[2024-04-07] MEDS ORDERED: VANCOMYCIN/WATER 1250 MG 1,250 MG/250 ML BAG IVPB ONE (15:54)
[2024-04-08] MEDS ORDERED: VANCOMYCIN/WATER 1250 MG 1,250 MG/250 ML BAG IVPB ONE ×2 (02:53→15:15)
[2024-04-08 06:01] LABS: EOS % 5.8 % (0-4.5); HEMATOCRIT 32.6 % (35.4-49); HEMOGLOBIN 11.3 GM/dL (11.7-16.9); LYMPH % 21.4 % (8-40); MCH 29.4 pg (25.7-33.7); MCHC 34.7 g/dl (32.0-35.9); MEAN CELL VOLUME 84.9 fl (80-96); MONO % 8.2 % (3.8-10.2); NEUT % 63.6 % (42.8-82.8); PLATELET COUNT 270 10^3/uL (134-434); RBC 3.84 M/mm3 (4.00-5.60); RDW 12.6 % (11.9-15.9); WHITE BLOOD COUNT 5.9 K/mm3 (4.0-10.0)
[2024-04-08 06:10] LABS: CHLORIDE 99 mmol/L (98-107); POTASSIUM 4.5 mmol/L (3.5-5.1); SODIUM 135 mmol/L (136-145)
[2024-04-08 06:12] LABS: ALBUMIN 2.7 g/dl (3.4-5.0); ANION GAP 3 mmol/L (4-13); CALCIUM 8.5 mg/dL (8.5-10.1); CO2 33 mmol/L (21-32)
[2024-04-08] MEDS ORDERED: methaDONE HCL 40 MG DISPERSABLE TABLET ONE ×2 (06:12→06:49)
[2024-04-08 06:13] LABS: BLOOD UREA NITROGEN 7.8 mg/dL (7-18)
[2024-04-08 06:16] LABS: CREATININE 0.8 mg/dL (0.55-1.3); SGOT/AST 8 U/L (15-37); SGPT/ALT 20 U/L (13-61)
[2024-04-08 06:17] LABS: BILIRUBIN,TOTAL 0.2 mg/dL (0.2-1); TOT PROT 6.2 g/dl (6.4-8.2)
[2024-04-08 06:18] LABS: ALK PHOS 89 U/L (45-117)
[2024-04-08 06:29] LABS: GLUCOSE,RANDOM 403 mg/dL (74-106)
[2024-04-08] MEDS ORDERED: methaDONE HCL 10 MG TABLET ONE (06:50)
[2024-04-08] MEDS: methaDONE 40 MG, methaDONE 10 MG PO ONE (06:54)
[2024-04-08] MEDS ORDERED: INSULIN ASPART SLIDING SCALE (NOVOLOG) 1 VIAL SQ ONE ×3 (08:59→19:10)
[2024-04-08] MEDS ORDERED: ASPIRIN 81 MG CHEWABLE TABLETS ONE (09:34)
[2024-04-08] MEDS ORDERED: GABAPENTIN 100 MG CAPSULE ONE (09:35)
[2024-04-08] MEDS ORDERED: CEFTRIAXONE 2 GM/100 ML BAG IVPB ONE (09:35)
[2024-04-08] MEDS ORDERED: ENOXAPARIN NA (PORCINE) 40 MG/0.4 ML DISP.SYRIN SQ ONE (09:35)
[2024-04-08] MEDS ORDERED: INSULIN (LEVEMIR) 100 UNITS/ML UNITS SQ ONE (09:38)
[2024-04-08] MEDS: INSULIN (LEVEMIR) 100 UNITS/ML UNITS SQ SCH (11:54)
[2024-04-09 01:46] VITALS: BMI 27.8
[2024-04-09] MEDS ORDERED: methaDONE HCL 40 MG DISPERSABLE TABLET PO SCH (06:00)
[2024-04-09] MEDS: methaDONE 80 MG, methaDONE 10 MG PO SCH (06:52)
[2024-04-10 13:31] LABS: GLUCOSE,RANDOM 481 mg/dL (74-106)
[2024-04-10] MEDS: INSULIN ASPART SLIDING SCALE (NOVOLOG) 1 VIAL SQ SCH (17:54)
[2024-04-10] MEDS: traMADol HCL 50 MG TABLET PO ONE (18:06)
[2024-04-10] MEDS: ACETAMINOPHEN 325 MG TABLET (FP) PO ONE (21:17)
[2024-04-10] MEDS: MELATONIN 5 MG TABLETS PO PRN (21:17)
[2024-04-10] MEDS: INSULIN (LEVEMIR) 100 UNITS/ML UNITS SQ SCH (21:18)
[2024-04-10] MEDS ORDERED: INSULIN (LEVEMIR) 100 UNITS/ML UNITS SQ SCH (22:00)
[2024-04-11 08:37] LABS: HEMATOCRIT 36.9 % (35.4-49); HEMOGLOBIN 12.7 GM/dL (11.7-16.9); MCH 28.8 pg (25.7-33.7); MCHC 34.4 g/dl (32.0-35.9); MEAN CELL VOLUME 83.8 fl (80-96); MEAN PLT VOLUME 7.6 fl (7.5-11.1); PLATELET COUNT 392 10^3/uL (134-434); RBC 4.41 M/mm3 (4.00-5.60); RDW 12.4 % (11.9-15.9); WHITE BLOOD COUNT 7.9 K/mm3 (4.0-10.0)
[2024-04-11 08:56] LABS: POTASSIUM 4.5 mmol/L (3.5-5.1)
[2024-04-11 09:01] LABS: CALCIUM 9.4 mg/dL (8.5-10.1)
[2024-04-11 09:02] LABS: ALBUMIN 3.2 g/dl (3.4-5.0); BLOOD UREA NITROGEN 24.8 mg/dL (7-18)
[2024-04-11 09:04] LABS: CREATININE 0.5 mg/dL (0.55-1.3)
[2024-04-11 09:05] LABS: BILIRUBIN,TOTAL 0.3 mg/dL (0.2-1)
[2024-04-11 09:07] LABS: TOT PROT 7.4 g/dl (6.4-8.2)
[2024-04-11] MEDS ORDERED: INSULIN ASPART SLIDING SCALE (NOVOLOG) 1 VIAL SQ ONE ×2 (10:04→17:37)
[2024-04-11] MEDS: sitaGLIPtin PHOSPHATE 50 MG TABLET PO ONE (10:10)
[2024-04-11 11:14] LABS: INR 1.08 (0.83-1.09); PROTHROMBIN TIME (PATIENT) 12.2 SEC (9.7-13.0)
[2024-04-11 11:43] LABS: GLUCOSE,RANDOM 444 mg/dL (74-106)
[2024-04-11] MEDS: traMADol HCL 50 MG TABLET PO PRN (18:24)
[2024-04-12] MEDS: BUPIVACAINE HCL/PF 0.5% (5MG/ML) 10 ML VIAL IJ ONE
[2024-04-12] MEDS: DEXAMETHASONE SOD PHOSPHATE 10 MG/1 ML VIAL IVPUSH ONE
[2024-04-12] MEDS: sitaGLIPtin PHOSPHATE 50 MG TABLET PO SCH (06:28)
[2024-04-12] MEDS ORDERED: sitaGLIPtin PHOSPHATE 50 MG TABLET PO SCH (07:00)
[2024-04-12] MEDS ORDERED: LIDOCAINE HCL 1%, 10 MG/ML (20ML VIAL) ONE (07:34)
[2024-04-12] MEDS ORDERED: BUPIVACAINE HCL/PF 0.5% (5MG/ML) 10 ML VIAL ONE (07:35)
[2024-04-12] MEDS ORDERED: DEXAMETHASONE SOD PHOSPHATE 10 MG/1 ML VIAL ONE (07:35)
[2024-04-12] MEDS ORDERED: BACITRACIN ZINC 15 GM TUBE TOPICAL OINTMENT ONE (07:35)
[2024-04-12 09:40] LABS: MCH 29.4 pg (25.7-33.7)
[2024-04-12 09:47] LABS: HEMATOCRIT 39.1 % (35.4-49); HEMOGLOBIN 13.6 GM/dL (11.7-16.9); MCHC 34.8 g/dl (32.0-35.9); MEAN CELL VOLUME 84.5 fl (80-96); MEAN PLT VOLUME 7.4 fl (7.5-11.1); PLATELET COUNT 446 10^3/uL (134-434); RBC 4.63 M/mm3 (4.00-5.60); RDW 12.6 % (11.9-15.9); WHITE BLOOD COUNT 9.7 K/mm3 (4.0-10.0)
[2024-04-12 10:02] LABS: POTASSIUM 4.7 mmol/L (3.5-5.1)
[2024-04-12 10:07] LABS: ALBUMIN 3.4 g/dl (3.4-5.0); BLOOD UREA NITROGEN 21.2 mg/dL (7-18); CALCIUM 9.7 mg/dL (8.5-10.1)
[2024-04-12] MEDS ORDERED: PROPOFOL 40 ML ONE (10:08)
[2024-04-12] MEDS ORDERED: MIDAZOLAM HCL 2 MG/2 ML SINGLE DOSE VIAL ONE (10:08)
[2024-04-12 10:10] LABS: CREATININE 0.5 mg/dL (0.55-1.3)
[2024-04-12 10:12] LABS: BILIRUBIN,TOTAL 0.3 mg/dL (0.2-1); TOT PROT 8.3 g/dl (6.4-8.2)
[2024-04-12] MEDS: LIDOCAINE HCL 1%, 10 MG/ML (20ML VIAL) INF ONE ×2 (10:14)
[2024-04-12] MEDS ORDERED: MELATONIN 5 MG TABLETS PO PRN (11:08)
[2024-04-12] MEDS ORDERED: traMADol HCL 50 MG TABLET PO PRN (11:08)
[2024-04-12 12:01] LABS: BASO % 0.4 % (0-2.0); EOS % 2.7 % (0-4.5); HEMATOCRIT 38.8 % (35.4-49); HEMOGLOBIN 13.5 GM/dL (11.7-16.9); LYMPH % 13.7 % (8-40); MCH 29.2 pg (25.7-33.7); MEAN CELL VOLUME 83.6 fl (80-96); MEAN PLT VOLUME 7.3 fl (7.5-11.1); NEUT % 75.2 % (42.8-82.8); PLATELET COUNT 468 10^3/uL (134-434); RBC 4.64 M/mm3 (4.00-5.60); RDW 12.9 % (11.9-15.9); WHITE BLOOD COUNT 9.1 K/mm3 (4.0-10.0)
[2024-04-12 12:14] VITALS: BP 125/92; PULSE 78; RESP 20; TEMP 98
[2024-04-12] MEDS ORDERED: INSULIN ASPART SLIDING SCALE (NOVOLOG) 1 VIAL SQ SCH (13:15)
[2024-04-12] MEDS ORDERED: INSULIN (LEVEMIR) 100 UNITS/ML UNITS SQ SCH (22:00)
[2024-04-13] MEDS ORDERED: methaDONE 80 MG, methaDONE 10 MG PO SCH (06:00)
[2024-04-13] MEDS ORDERED: sitaGLIPtin PHOSPHATE 50 MG TABLET PO SCH (07:00)
[2024-04-13] MEDS ORDERED: GABAPENTIN 100 MG CAPSULE PO SCH (10:00)
[2024-04-13] MEDS ORDERED: RAMIPRIL 2.5 MG CAPSULE PO SCH (10:00)
[2024-04-13] MEDS ORDERED: DULoxetine HCL 20 MG CAPSULE.DR PO SCH (10:00)
[2024-04-13] MEDS ORDERED: CEFTRIAXONE 2 GM/50 ML BAG IVPB SCH (10:00)
== END 2024-04-12 12:54 | disposition left against medical advice (07) | DRG 305 ==
LOC: JER 10:16 → JERBED 10:54 → J8W 04-08 20:40
PROVIDERS: ADMIT Family Medicine; ATTEND Family Medicine
PROC: 0Y6N0ZB Detachment at Left Foot, Partial 2nd Ray, Open Approach (ICD-10-PCS; principal; 2024-04-12 10:00)
DX: E11.69 Type 2 diabetes mellitus with other specified complication (principal); M86.9 Osteomyelitis, unspecified; E11.40 Type 2 diabetes mellitus with diabetic neuropathy, unspecified; L97.509 Non-pressure chronic ulcer of other part of unspecified foot with unspecified severity; F11.20 Opioid dependence, uncomplicated; E11.621 Type 2 diabetes mellitus with foot ulcer; L03.116 Cellulitis of left lower limb; L03.115 Cellulitis of right lower limb; E78.5 Hyperlipidemia, unspecified; F31.9 Bipolar disorder, unspecified; I10 Essential (primary) hypertension; J45.909 Unspecified asthma, uncomplicated; L08.9 Local infection of the skin and subcutaneous tissue, unspecified; F17.210 Nicotine dependence, cigarettes, uncomplicated
CPT/HCPCS: 36415; 73630-TC-RT-FY; 73701-TC-RT; 80053; 82947; 82962; 83036; 85025; 85027; 85610; 85651; 85730; 86140; 86850; 86900; 86901; 87070; 87186; 87205; 88305-TC; 88311-TC; 93005; 93010; 93922; 93926-TC; 93971-TC; 99285-25; J0131; J1100; Q9967

== ENCOUNTER 2024-04-23 17:45 | Inpatient (IN) | payer OTHER ==
[2024-04-23 18:19] VITALS: BMI 30.4
[2024-04-23 19:31] LABS: BASO % 1.2 % (0-2.0); EOS % 2.9 % (0-4.5); HEMOGLOBIN 12.7 GM/dL (11.7-16.9); MCH 28.4 pg (25.7-33.7); MCHC 34.4 g/dl (32.0-35.9); MEAN CELL VOLUME 82.4 fl (80-96); MEAN PLT VOLUME 7.9 fl (7.5-11.1); MONO % 7.1 % (3.8-10.2); NEUT % 66.8 % (42.8-82.8); PLATELET COUNT 384 10^3/uL (134-434); RBC 4.49 M/mm3 (4.00-5.60); RDW 12.9 % (11.9-15.9); WHITE BLOOD COUNT 7.8 K/mm3 (4.0-10.0)
[2024-04-23 19:51] LABS: INR 1.16 (0.83-1.09); PROTHROMBIN TIME (PATIENT) 13.3 SEC (9.7-13.0)
[2024-04-23] MEDS ORDERED: VANCOMYCIN 2,000 MG in DEXTROSE 5%-WATER - 500 ML IVPB ONE (19:52)
[2024-04-23 19:54] LABS: ACTIVATED PTT 33.3 SECONDS (25.2-36.5); ALBUMIN 3.4 g/dl (3.4-5.0); BLOOD UREA NITROGEN 9.3 mg/dL (7-18); CALCIUM 9.4 mg/dL (8.5-10.1); MAGNESIUM 1.6 mg/dL (1.8-2.4)
[2024-04-23 19:57] LABS: CREATININE 0.6 mg/dL (0.55-1.3)
[2024-04-23 19:58] LABS: PHOSPHOROUS 2.4 mg/dL (2.5-4.9)
[2024-04-23 19:59] LABS: BILIRUBIN,TOTAL 0.3 mg/dL (0.2-1); TOT PROT 8.2 g/dl (6.4-8.2)
[2024-04-23 20:30] LABS: ERYTHROCYTE SEDIMENTATION RATE 53 mm/hr (0-20)
[2024-04-23] MEDS ORDERED: cefTRIAXone SODIUM 1 GM VIAL ONE (20:41)
[2024-04-23] MEDS: CEFTRIAXONE 2,000 MG in DEXTROSE 5%-WATER - 50 ML IVPB ONE (20:52)
[2024-04-23] MEDS: VANCOMYCIN/WATER 2 GRAMS 2,000 MG/400 ML PIGGYBACK IVPB ONE (21:31)
[2024-04-23] MEDS ORDERED: MELATONIN 5 MG TABLETS PO PRN (21:57)
[2024-04-23] MEDS: MAGNESIUM SULF 50% (8.12 MEQ/2 ML-1 GM VIAL) IVPB ONE (21:58)
[2024-04-23] MEDS ORDERED: QUEtiapine FUMARATE 100 MG TABLET (FP) ONE (22:37)
[2024-04-23] MEDS ORDERED: MAGNESIUM SULFATE IN WATER 2 GM/50 ML IVPB IVPB ONE (22:38)
[2024-04-23] MEDS: QUEtiapine FUMARATE 100 MG TABLET (FP) PO SCH (22:43)
[2024-04-23] MEDS: INSULIN ASPART SLIDING SCALE (NOVOLOG) 1 VIAL SQ SCH (22:48)
[2024-04-23] MEDS ORDERED: ACETAMINOPHEN 325 MG TABLET (FP) PO PRN (23:16)
[2024-04-23] MEDS ORDERED: INSULIN (LEVEMIR) 100 UNITS/ML UNITS SQ ONE (23:30)
[2024-04-23] MEDS: INSULIN (LEVEMIR) 100 UNITS/ML UNITS SQ ONE (23:36)
[2024-04-23] MEDS: MAGNESIUM 2GM/50ML STERILE WATER IVPB IVPB ONE (23:36)
[2024-04-24] MEDS: sitaGLIPtin PHOSPHATE 50 MG TABLET PO SCH (06:31)
[2024-04-24] MEDS: INSULIN (LEVEMIR) 100 UNITS/ML UNITS SQ SCH (06:34)
[2024-04-24 09:29] LABS: BASO % 0.8 % (0-2.0); EOS % 3.3 % (0-4.5); HEMOGLOBIN 12.8 GM/dL (11.7-16.9); LYMPH % 20.9 % (8-40); MCH 28.4 pg (25.7-33.7); MCHC 33.8 g/dl (32.0-35.9); MEAN PLT VOLUME 8.2 fl (7.5-11.1); PLATELET COUNT 361 10^3/uL (134-434); RBC 4.53 M/mm3 (4.00-5.60); WHITE BLOOD COUNT 6.5 K/mm3 (4.0-10.0)
[2024-04-24 09:39] LABS: POTASSIUM 4.5 mmol/L (3.5-5.1)
[2024-04-24 09:41] LABS: CALCIUM 9.4 mg/dL (8.5-10.1)
[2024-04-24 09:45] LABS: CREATININE 0.6 mg/dL (0.55-1.3)
[2024-04-24] MEDS: methaDONE 80 MG, methaDONE 10 MG PO SCH (11:06)
[2024-04-24] MEDS: CEFTRIAXONE 2 GM-D5W BAG 2 GM/50 ML BAG IVPB SCH (11:06)
[2024-04-24 15:47] VITALS: RESP 18
[2024-04-24] MEDS: VANCOMYCIN/WATER 1250 MG 1,250 MG/250 ML BAG IVPB SCH (20:10)
[2024-04-24] MEDS ORDERED: VANCOMYCIN/WATER 1250 MG 1,250 MG/250 ML BAG IVPB SCH (21:00)
[2024-04-25] MEDS: RAMIPRIL 2.5 MG CAPSULE PO SCH (10:21)
[2024-04-25] MEDS: CEFAZOLIN 1 GM/D5W 1 GM/50 ML BAG IVPB SCH (10:25)
[2024-04-25] MEDS: DULoxetine HCL 20 MG CAPSULE.DR PO SCH (10:25)
[2024-04-25] MEDS: ASPIRIN 81 MG CHEWABLE TABLETS PO SCH (10:25)
[2024-04-25 10:34] LABS: BASO % 0.4 % (0-2.0); EOS % 4.2 % (0-4.5); HEMOGLOBIN 12.9 GM/dL (11.7-16.9); LYMPH % 24.8 % (8-40); MCHC 33.2 g/dl (32.0-35.9); MEAN CELL VOLUME 84.4 fl (80-96); MEAN PLT VOLUME 8.4 fl (7.5-11.1); MONO % 7.3 % (3.8-10.2); NEUT % 63.3 % (42.8-82.8); PLATELET COUNT 373 10^3/uL (134-434); RBC 4.62 M/mm3 (4.00-5.60); RDW 12.8 % (11.9-15.9)
[2024-04-25] MEDS ORDERED: INSULIN ASPART SLIDING SCALE (NOVOLOG) 1 VIAL SQ ONE ×2 (10:41→16:32)
[2024-04-25 10:50] LABS: POTASSIUM 4.9 mmol/L (3.5-5.1)
[2024-04-25 11:00] LABS: ALBUMIN 3.1 g/dl (3.4-5.0); BLOOD UREA NITROGEN 12.9 mg/dL (7-18); CALCIUM 9.4 mg/dL (8.5-10.1)
[2024-04-25 11:03] LABS: CREATININE 0.7 mg/dL (0.55-1.3)
[2024-04-25 11:05] LABS: BILIRUBIN,TOTAL 0.3 mg/dL (0.2-1); TOT PROT 7.5 g/dl (6.4-8.2)
[2024-04-26 11:16] VITALS: BP 140/88; PULSE 69; TEMP 98
== END 2024-04-26 10:55 | disposition home health service (06) | DRG 344 ==
LOC: JER 17:45 → JERBED 19:57 → J8W 23:53
PROVIDERS: ADMIT Internal Medicine; ATTEND Family Medicine
DX: E11.69 Type 2 diabetes mellitus with other specified complication (principal); E11.51 Type 2 diabetes mellitus with diabetic peripheral angiopathy without gangrene; F11.20 Opioid dependence, uncomplicated; E11.42 Type 2 diabetes mellitus with diabetic polyneuropathy; T81.30XA Disruption of wound, unspecified, initial encounter; M86.8X7 Other osteomyelitis, ankle and foot; E11.621 Type 2 diabetes mellitus with foot ulcer; L97.519 Non-pressure chronic ulcer of other part of right foot with unspecified severity; J45.909 Unspecified asthma, uncomplicated; Z79.4 Long term (current) use of insulin; F32.A Depression, unspecified; Y83.8 Other surgical procedures as the cause of abnormal reaction of the patient, or of later complication, without mention of misadventure at the time of the procedure; Y92.9 Unspecified place or not applicable
CPT/HCPCS: 36415; 73630-TC-RT-FY; 80048; 80053; 82962; 83036; 83735; 84100; 85025; 85610; 85651; 85730; 86140; 86850; 86900; 86901; 87040; 87070; 87186; 87205; 93005; 93010; 99285-25

== ENCOUNTER 2024-05-21 11:46 | Inpatient (IN) | payer OTHER ==
[2024-05-21 13:26] LABS: BASO % 0.6 % (0-2.0); EOS % 2.2 % (0-4.5); HEMATOCRIT 37.7 % (35.4-49); HEMOGLOBIN 12.9 GM/dL (11.7-16.9); LYMPH % 19.7 % (8-40); MCH 28.3 pg (25.7-33.7); MCHC 34.2 g/dl (32.0-35.9); MEAN CELL VOLUME 82.8 fl (80-96); MEAN PLT VOLUME 8.2 fl (7.5-11.1); MONO % 6.1 % (3.8-10.2); NEUT % 71.4 % (42.8-82.8); PLATELET COUNT 271 10^3/uL (134-434); RBC 4.55 M/mm3 (4.00-5.60); WHITE BLOOD COUNT 6.5 K/mm3 (4.0-10.0)
[2024-05-21 13:46] LABS: POTASSIUM 4.6 mmol/L (3.5-5.1)
[2024-05-21 13:49] LABS: ALBUMIN 3.5 g/dl (3.4-5.0); BLOOD UREA NITROGEN 8.6 mg/dL (7-18); CALCIUM 9.1 mg/dL (8.5-10.1); MAGNESIUM 1.6 mg/dL (1.8-2.4)
[2024-05-21 13:52] LABS: CREATININE 0.7 mg/dL (0.55-1.3); PHOSPHOROUS 3.2 mg/dL (2.5-4.9)
[2024-05-21 13:53] LABS: BILIRUBIN,TOTAL 0.3 mg/dL (0.2-1)
[2024-05-21 13:54] LABS: TOT PROT 7.8 g/dl (6.4-8.2)
[2024-05-21 14:14] LABS: ERYTHROCYTE SEDIMENTATION RATE 38 mm/hr (0-20)
[2024-05-21] MEDS ORDERED: PIPERACILLIN/TAZOB 4.5 GM 4.5 GM/100 ML BAG IVPB ONE (14:18)
[2024-05-21] MEDS ORDERED: VANCOMYCIN 1 GM PREMIX (F) 1 GM/200 ML BAG ONE ×2 (14:21)
[2024-05-21] MEDS: PIPERACILLIN/TAZOB 4.5 GM 4.5 GM in DEXTROSE 5%-WATER 100 ML IVPB ONE (14:46)
[2024-05-21] MEDS: VANCOMYCIN 1,000 MG in DEXTROSE 5%-WATER - 250 ML IVPB ONE (15:30)
[2024-05-21] MEDS ORDERED: traMADol HCL 50 MG TABLET ONE (23:01)
[2024-05-21] MEDS: traMADol HCL 50 MG TABLET PO ONE (23:12)
[2024-05-22] MEDS ORDERED: CEFAZOLIN 1 GM/D5W 1 GM/50 ML BAG ONE (01:18)
[2024-05-22] MEDS: CEFAZOLIN 1 GM/D5W 1 GM/50 ML BAG IVPB SCH (01:30)
[2024-05-22] MEDS: INSULIN ASPART SLIDING SCALE (NOVOLOG) 1 VIAL SQ SCH (01:33)
[2024-05-22 02:28] VITALS: BMI 26.6
[2024-05-22 09:13] LABS: BASO % 0.5 % (0-2.0); EOS % 4.9 % (0-4.5); HEMATOCRIT 34.9 % (35.4-49); HEMOGLOBIN 11.6 GM/dL (11.7-16.9); MCH 27.6 pg (25.7-33.7); MCHC 33.1 g/dl (32.0-35.9); MEAN CELL VOLUME 83.5 fl (80-96); MEAN PLT VOLUME 8.3 fl (7.5-11.1); MONO % 8.4 % (3.8-10.2); NEUT % 53.2 % (42.8-82.8); PLATELET COUNT 237 10^3/uL (134-434); RBC 4.19 M/mm3 (4.00-5.60); RDW 13.2 % (11.9-15.9); WHITE BLOOD COUNT 4.5 K/mm3 (4.0-10.0)
[2024-05-22 09:25] LABS: POTASSIUM 4.3 mmol/L (3.5-5.1)
[2024-05-22 09:28] LABS: ALBUMIN 2.9 g/dl (3.4-5.0)
[2024-05-22 09:30] LABS: BLOOD UREA NITROGEN 9.4 mg/dL (7-18); CALCIUM 8.3 mg/dL (8.5-10.1); MAGNESIUM 1.7 mg/dL (1.8-2.4)
[2024-05-22 09:34] LABS: CREATININE 0.7 mg/dL (0.55-1.3); PHOSPHOROUS 2.9 mg/dL (2.5-4.9)
[2024-05-22 09:35] LABS: BILIRUBIN,TOTAL 0.3 mg/dL (0.2-1); TOT PROT 6.5 g/dl (6.4-8.2)
[2024-05-22] MEDS: NICOTINE 21 MG/24 HOURS TOPICAL PATCH TD SCH (10:23)
[2024-05-22] MEDS: BUDESONIDE/FORMETEROL FUMARATE 80/4.5 mcg INHALER IH SCH (10:23)
[2024-05-22] MEDS: GABAPENTIN 100 MG CAPSULE PO SCH (10:23)
[2024-05-22] MEDS: RAMIPRIL 2.5 MG CAPSULE PO SCH (12:36)
[2024-05-22] MEDS: DULoxetine HCL 20 MG CAPSULE.DR PO SCH (12:36)
[2024-05-23] MEDS ORDERED: methaDONE HCL 10 MG TABLET PO SCH (06:30)
[2024-05-23] MEDS: methaDONE 80 MG, methaDONE 10 MG PO SCH (06:48)
[2024-05-23 14:06] LABS: INR 1.07 (0.83-1.09); PROTHROMBIN TIME (PATIENT) 12.3 SEC (9.7-13.0)
[2024-05-23] MEDS: traMADol HCL 50 MG TABLET PO PRN (14:28)
[2024-05-24] MEDS ORDERED: LIDOCAINE HCL/PF 2% SDV 5ML VIAL ONE (07:06)
[2024-05-24] MEDS ORDERED: MIDAZOLAM HCL 2 MG/2 ML SINGLE DOSE VIAL ONE (07:07)
[2024-05-24] MEDS ORDERED: PROPOFOL 80 ML ONE (07:07)
[2024-05-24] MEDS ORDERED: BACITRACIN ZINC 15 GM TUBE TOPICAL OINTMENT ONE (07:08)
[2024-05-24] MEDS ORDERED: LIDOCAINE HCL 1%, 10 MG/ML (20ML VIAL) ONE (07:08)
[2024-05-24] MEDS ORDERED: BUPIVACAINE HCL/PF 0.5% (5MG/ML) 10 ML VIAL ONE (07:08)
[2024-05-24] MEDS ORDERED: GENTAMICIN SO4 80 MG/2 ML VIAL ONE ×2 (07:19→07:30)
[2024-05-24] MEDS ORDERED: KETOROLAC TROMETHAMINE 30 MG/1 ML VIAL ONE (07:45)
[2024-05-24] MEDS: LIDOCAINE HCL 1%, 10 MG/ML (20ML VIAL) NR ONE (07:45)
[2024-05-24] MEDS: BUPIVACAINE HCL/PF 0.5% (5 MG/ML) 30 ML VIAL IJ ONE (07:45)
[2024-05-24] MEDS ORDERED: ONDANSETRON 4 MG/2 ML VIAL ONE (07:45)
[2024-05-24] MEDS ORDERED: DEXAMETHASONE SOD PHOSPHATE 4 MG/1 ML VIAL ONE (07:45)
[2024-05-24] MEDS ORDERED: ceFAZolin SODIUM 1 GM VIAL ONE (07:45)
[2024-05-24] MEDS ORDERED: ONDANSETRON 4 MG/2 ML VIAL IVPUSH PRN ×2 (08:19→08:32)
[2024-05-24] MEDS ORDERED: PROMETHAZINE HCL 25 MG/1 ML VIAL IVPB PRN (08:19)
[2024-05-24] MEDS ORDERED: ACETAMINOPHEN 1000 MG/100 ML BAG IVPB ONE (08:20)
[2024-05-24] MEDS ORDERED: LACTATED RINGERS SOLUTION 1,000 ML IV SCH ×2 (08:30→08:32)
[2024-05-24] MEDS: ACETAMINOPHEN 1000 MG/100 ML BAG IVPB ONE (08:42)
[2024-05-24] MEDS: ACETAMINOPHEN INJECTION 100 ML ONE (08:42)
[2024-05-24] MEDS: CEFAZOLIN 1 GM/D5W 1 GM/50 ML BAG IVPB SCH (09:49)
[2024-05-24] MEDS: RAMIPRIL 2.5 MG CAPSULE PO SCH (10:47)
[2024-05-24] MEDS: DULoxetine HCL 20 MG CAPSULE.DR PO SCH (10:50)
[2024-05-24] MEDS: NICOTINE 21 MG/24 HOURS TOPICAL PATCH TD SCH (10:50)
[2024-05-24] MEDS: GABAPENTIN 100 MG CAPSULE PO SCH (10:50)
[2024-05-24] MEDS: BUDESONIDE/FORMETEROL FUMARATE 80/4.5 mcg INHALER IH SCH (10:51)
[2024-05-24] MEDS: INSULIN ASPART SLIDING SCALE (NOVOLOG) 1 VIAL SQ SCH (11:57)
[2024-05-24 12:36] LABS: HEMATOCRIT 41.2 % (35.4-49); HEMOGLOBIN 13.8 GM/dL (11.7-16.9); MCH 27.8 pg (25.7-33.7); MCHC 33.4 g/dl (32.0-35.9); MEAN CELL VOLUME 83.2 fl (80-96); MEAN PLT VOLUME 8.3 fl (7.5-11.1); PLATELET COUNT 273 10^3/uL (134-434); RBC 4.95 M/mm3 (4.00-5.60); RDW 13.5 % (11.9-15.9); WHITE BLOOD COUNT 7.2 K/mm3 (4.0-10.0)
[2024-05-24 12:40] LABS: INR 1.11 (0.83-1.09); PROTHROMBIN TIME (PATIENT) 12.7 SEC (9.7-13.0)
[2024-05-24 12:58] LABS: CHLORIDE 95 mmol/L (98-107); POTASSIUM 4.6 mmol/L (3.5-5.1); SODIUM 130 mmol/L (136-145)
[2024-05-24 13:08] LABS: ANISOCYTOSIS 0; MACROCYTOSIS 0
[2024-05-24 13:09] LABS: SGPT/ALT 14 U/L (13-61)
[2024-05-24 13:10] LABS: BILIRUBIN,TOTAL 0.4 mg/dL (0.2-1); TOT PROT 7.6 g/dl (6.4-8.2)
[2024-05-24 13:11] LABS: ALBUMIN 3.4 g/dl (3.4-5.0); ANION GAP 7 mmol/L (4-13); CO2 28 mmol/L (21-32)
[2024-05-24 13:12] LABS: ALK PHOS 76 U/L (45-117)
[2024-05-24 13:13] LABS: CALCIUM 8.9 mg/dL (8.5-10.1)
[2024-05-24 13:14] LABS: SGOT/AST 12 U/L (15-37)
[2024-05-24 13:29] LABS: GLUCOSE,RANDOM 430 mg/dL (74-106)
[2024-05-24] MEDS: traMADol HCL 50 MG TABLET PO PRN (18:37)
[2024-05-25] MEDS: methaDONE 80 MG, methaDONE 10 MG PO SCH (06:01)
[2024-05-25 11:03] VITALS: BP 134/92; PULSE 78; RESP 20; TEMP 98.8
[2024-05-25 11:17] LABS: CHLORIDE 94 mmol/L (98-107); SODIUM 130 mmol/L (136-145)
[2024-05-25 11:20] LABS: HEMATOCRIT 35.5 % (35.4-49); HEMOGLOBIN 12.2 GM/dL (11.7-16.9); MCH 28.4 pg (25.7-33.7); MCHC 34.4 g/dl (32.0-35.9); MEAN CELL VOLUME 82.6 fl (80-96); MEAN PLT VOLUME 8.5 fl (7.5-11.1); PLATELET COUNT 261 10^3/uL (134-434); RDW 13.2 % (11.9-15.9); WHITE BLOOD COUNT 7.6 K/mm3 (4.0-10.0)
[2024-05-25 11:43] LABS: ANION GAP 10 mmol/L (4-13); CALCIUM 9.2 mg/dL (8.5-10.1); CO2 26 mmol/L (21-32)
[2024-05-25 11:44] LABS: ALBUMIN 3.6 g/dl (3.4-5.0); BLOOD UREA NITROGEN 18.5 mg/dL (7-18)
[2024-05-25 11:45] LABS: GLUCOSE,RANDOM 466 mg/dL (74-106)
[2024-05-25 11:46] LABS: CREATININE 0.9 mg/dL (0.55-1.3)
[2024-05-25 11:47] LABS: BILIRUBIN,TOTAL 0.5 mg/dL (0.2-1); SGOT/AST 8 U/L (15-37); SGPT/ALT 14 U/L (13-61); TOT PROT 7.8 g/dl (6.4-8.2)
[2024-05-25 11:50] LABS: ALK PHOS 84 U/L (45-117)
[2024-05-25] MEDS ORDERED: ASPIRIN 81 MG CHEWABLE TABLETS PO SCH (12:45)
[2024-05-25] MEDS ORDERED: INSULIN (LEVEMIR) 100 UNITS/ML UNITS SQ SCH (13:00)
[2024-05-26] MEDS ORDERED: metFORMIN HCL 500 MG TABLET (FP) PO SCH (07:00)
== END 2024-05-25 12:33 | disposition left against medical advice (07) | DRG 314 ==
LOC: JER 11:46 → JERBED 12:34 → OBSVTOIN 16:35 → J6S 05-22 01:40 → UNDODISIN 05-25 12:33
PROVIDERS: ADMIT Internal Medicine; ATTEND Internal Medicine
PROC: 0Y6R0Z0 Detachment at Right 2nd Toe, Complete, Open Approach (ICD-10-PCS; principal; 2024-05-24 07:30)
DX: E11.69 Type 2 diabetes mellitus with other specified complication (principal); R45.851 Suicidal ideations; F11.20 Opioid dependence, uncomplicated; F13.20 Sedative, hypnotic or anxiolytic dependence, uncomplicated; F10.20 Alcohol dependence, uncomplicated; F32.A Depression, unspecified; I10 Essential (primary) hypertension; E11.621 Type 2 diabetes mellitus with foot ulcer; E11.42 Type 2 diabetes mellitus with diabetic polyneuropathy; M86.171 Other acute osteomyelitis, right ankle and foot; M86.671 Other chronic osteomyelitis, right ankle and foot
CPT/HCPCS: 36415; 73630-TC-RT-FY; 73723-TC; 80053; 82962; 83036; 83735; 84100; 84443; 85025; 85027; 85610; 85651; 86140; 86850; 86900; 86901; 87040; 87070; 87186; 87205; 88305-TC; 88311-TC; 93005; 93010; 94760; 99285-25; G0378; J0131

== ENCOUNTER 2024-10-22 17:28 | Emergency (ER) | payer OTHER ==
[2024-10-22 18:01] VITALS: BMI 28.0
[2024-10-22 20:42] LABS: ABSOLUTE IMMATURE GRANULOCYTES 0.03 x10^3/uL (0.0-0.031); BASOPHILS # 0.02 x10^3/uL (0.01-0.08); EOSINOPHIL % 1.1 % (0.8-7.0); HEMATOCRIT 37.6 % (40.1-51.0); HEMOGLOBIN 12.3 g/dL (13.7-17.5); MCHC 32.7 g/dl (32.3-36.5); MEAN CELL VOLUME 82.8 fl (79.0-92.2); MEAN PLT VOLUME 10.1 fl (9.4-12.4); MONOCYTE # 0.71 x10^3/uL (0.30-0.82); PLATELET COUNT 330 x10^3/uL (163-337); RDW 12.6 % (12.2-16.1)
[2024-10-22 20:59] LABS: CHLORIDE 92 mmol/L (98-107); POTASSIUM 4.4 mmol/L (3.5-5.1); SODIUM 131 mmol/L (136-145)
[2024-10-22 21:01] LABS: ALBUMIN 3.5 g/dl (3.4-5.0); ANION GAP 6 mmol/L (4-13); BLOOD UREA NITROGEN 14.8 mg/dL (7-18); CALCIUM 10.2 mg/dL (8.5-10.1); CO2 33 mmol/L (21-32)
[2024-10-22 21:05] LABS: CREATININE 0.9 mg/dL (0.55-1.3); SGOT/AST 11 U/L (15-37); SGPT/ALT 16 U/L (13-61)
[2024-10-22 21:06] LABS: BILIRUBIN,TOTAL 0.5 mg/dL (0.2-1)
[2024-10-22 21:08] LABS: ALK PHOS 111 U/L (45-117)
[2024-10-22 21:11] LABS: GLUCOSE,RANDOM 414 mg/dL (74-106)
[2024-10-22] MEDS ORDERED: ACETAMINOPHEN 325 MG TABLET (FP) ONE (21:26)
[2024-10-22] MEDS: ACETAMINOPHEN 500 MG TABLET (FP) PO ONE (21:35)
[2024-10-22] MEDS: ACETAMINOPHEN 1000 MG/100 ML BAG IVPB ONE (21:39)
[2024-10-22] MEDS: SODIUM CHLORIDE 0.9% 500 ML INFUS.BAG IV ONE ×2 (21:39→22:14)
[2024-10-22 21:41] VITALS: BP 90/52; PULSE 79; RESP 23; TEMP 98.8
== END 2024-10-22 23:07 | disposition home or self-care (01) ==
LOC: JER 17:28
DX: R07.81 Pleurodynia (principal); R00.2 Palpitations
CPT/HCPCS: 36415; 71046-TC-FY; 80053; 84484; 85025; 93005; 93010; 99285-25

== ENCOUNTER 2024-10-30 11:32 | Emergency (ER) | payer OTHER ==
[2024-10-30 12:15] VITALS: BMI 28.0
[2024-10-30] MEDS: morphine CARPU-JECT 4 MG/1 ML DISP.SYRIN IVPUSH ONE (13:08)
[2024-10-30] MEDS ORDERED: KETOROLAC TROMETHAMINE 15 MG/ML VIAL ONE (13:19)
[2024-10-30] MEDS ORDERED: LIDOCAINE 5% TOPICAL PATCH ONE (13:19)
[2024-10-30] MEDS ORDERED: INSULIN ASPART SLIDING SCALE (NOVOLOG) 1 VIAL SQ ONE (13:19)
[2024-10-30 13:22] LABS: ABSOLUTE IMMATURE GRANULOCYTES 0.04 x10^3/uL (0.0-0.031); BASOPHILS # 0.02 x10^3/uL (0.01-0.08); EOSINOPHIL % 1.5 % (0.8-7.0); EOSINOPHILS # 0.13 x10^3/uL (0.04-0.54); HEMATOCRIT 37.6 % (40.1-51.0); HEMOGLOBIN 12.5 g/dL (13.7-17.5); MCHC 33.2 g/dl (32.3-36.5); MEAN CELL VOLUME 81.7 fl (79.0-92.2); MEAN PLT VOLUME 9.7 fl (9.4-12.4); MONOCYTE # 0.79 x10^3/uL (0.30-0.82); MONOCYTE % 9.3 % (5.3-12.2); PLATELET COUNT 400 x10^3/uL (163-337); RDW 12.5 % (12.2-16.1)
[2024-10-30] MEDS: LIDOCAINE 5% TOPICAL PATCH TP ONE (13:25)
[2024-10-30] MEDS: KETOROLAC TROMETHAMINE 15 MG/ML VIAL IVPUSH ONE (13:25)
[2024-10-30] MEDS: LACTATED RINGERS SOLUTION 1000 ML INFUS.BAG IV ONE (13:25)
[2024-10-30] MEDS: INSULIN (NOVOLOG) ASPART 100 UNITS/ML 10ML VIAL SQ ONE (13:26)
[2024-10-30 13:29] LABS: INR 1.2 (0.83-1.09); PROTHROMBIN TIME (PATIENT) 13.2 SEC (9.7-13.0)
[2024-10-30 13:31] LABS: ACTIVATED PTT 31.9 SECONDS (25.2-36.5)
[2024-10-30 13:37] LABS: VENOUS BASE EXCESS 1.4 mmol/L (-2-2); VENOUS O2 SATURATION 58.3 % (70-80); VENOUS PCO2 49.4 mmHg (38-52); VENOUS PH 7.364 (7.310-7.410)
[2024-10-30 13:55] LABS: POTASSIUM 4.3 mmol/L (3.5-5.1)
[2024-10-30 13:57] LABS: ALBUMIN 3.7 g/dl (3.4-5.0); BLOOD UREA NITROGEN 20.1 mg/dL (7-18); CALCIUM 9.9 mg/dL (8.5-10.1)
[2024-10-30 14:00] LABS: CREATININE 0.8 mg/dL (0.55-1.3)
[2024-10-30 14:02] LABS: BILIRUBIN,TOTAL 0.4 mg/dL (0.2-1); TOT PROT 8.3 g/dl (6.4-8.2)
[2024-10-30] MEDS ORDERED: ACETAMINOPHEN INJECTION 100 ML ONE (15:07)
[2024-10-30] MEDS ORDERED: methaDONE HCL 40 MG DISPERSABLE TABLET ONE (15:07)
[2024-10-30] MEDS ORDERED: methaDONE HCL 10 MG TABLET ONE (15:07)
[2024-10-30] MEDS: methaDONE 80 MG, methaDONE 10 MG PO ONE (15:10)
[2024-10-30] MEDS: ACETAMINOPHEN 1000 MG/100 ML BAG IVPB ONE (15:12)
[2024-10-30 15:55] VITALS: BP 125/73; PULSE 67; RESP 18; TEMP 98.4
[2024-10-30] MEDS ORDERED: LIDOCAINE PATCH REMOVAL MC SCH (22:00)
== END 2024-10-30 17:00 | disposition home or self-care (01) ==
LOC: JER 11:32
PROC: 3E033NZ Introduction of Analgesics, Hypnotics, Sedatives into Peripheral Vein, Percutaneous Approach (ICD-10-PCS; principal; 2024-10-30)
PROC: 3E0333Z Introduction of Anti-inflammatory into Peripheral Vein, Percutaneous Approach (ICD-10-PCS; 2024-10-30)
DX: E11.65 Type 2 diabetes mellitus with hyperglycemia (principal); C34.90 Malignant neoplasm of unspecified part of unspecified bronchus or lung; R07.89 Other chest pain
CPT/HCPCS: 36415; 70450-TC; 71046-TC-FY; 80053; 82010; 82272; 82550; 82803; 82962; 84484; 85025; 85610; 85730; 93005; 93010; 99285-25; J0131